=== PATIENT | male | born 1990 | race Caucasian/White ===

== ENCOUNTER 2017-12-06 15:10 | Emergency (ER) | payer BC ==
--- NOTE | 2017-12-06 15:33 | PDOC ---
History of Present Illness - General Chief Complaint: Vomiting/Diarrhea Stated Complaint: N/V/D Time Seen by Provider: 12/06/17 15:12 History Source: Patient Exam Limitations: No Limitations - History of Present Illness Initial Comments: 27 yo M presents with 2 days of nausea, vomiting, and diarrhea. He states that his symptoms started two days ago with many episodes of vomiting and diarrhea, unable to keep anything down. He presented to an urgent care, which gave him zofran, with some improvement. However, despite this, today he was still having vomiting this morning, unable to eat or drink anything. The diarrhea has started to resolve, and the vomiting was not as bad as yesterday, but he is having stomach cramping that is causing discomfort. He took motrin prior to arrival with some relief. +Chills and sweating. No measured temp. Past History - Past Medical History Allergies/Adverse Reactions: Allergies Allergy/AdvReac Type Severity Reaction Status Date / Time No Known Allergies Allergy Verified 12/06/17 15:22 Home Medications: Ambulatory Orders Ibuprofen 800 mg PO ONCE 12/06/17 - Suicide/Smoking/Psychosocial Hx Smoking Status: No Smoking History: Never smoked Have you smoked in the past 12 months: No Number of Cigarettes Smoked Daily: 0 'Breaking Loose' booklet given: 07/11/14 Hx Alcohol Use: Yes (EVERY OTHER DAY) Drug/Substance Use Hx: No Substance Use Type: None Review of Systems - Review of Systems Able to Perform ROS?: Yes Comments:: GENERAL/CONSTITUTIONAL: No fever or chills. No weakness. HEAD, EYES, EARS, NOSE AND THROAT: No change in vision. No ear pain or discharge. No sore throat. CARDIOVASCULAR: No chest pain or shortness of breath. RESPIRATORY: No cough, wheezing, or hemoptysis. GASTROINTESTINAL: +Nausea, vomiting, and diarrhea. No constipation. GENITOURINARY: No dysuria, frequency, or change in urination. MUSCULOSKELETAL: No joint or muscle swelling or pain. No neck or back pain. SKIN: No rash NEUROLOGIC: No headache, vertigo, loss of consciousness, or change in strength/ sensation. ENDOCRINE: No increased thirst. No abnormal weight change. HEMATOLOGIC/LYMPHATIC: No anemia, easy bleeding, or history of blood clots. ALLERGIC/IMMUNOLOGIC: No hives or skin allergy. *Physical Exam - Vital Signs Last Vital Signs Temp Pulse Resp BP Pulse Ox 99.2 F 70 15 112/68 97 12/06/17 15:11 12/06/17 15:11 12/06/17 15:11 12/06/17 15:11 12/06/17 15:11 - Physical Exam Comments: GENERAL: Awake, alert, and fully oriented, in no acute distress. Appears nontoxic. HEAD: No signs of trauma EYES: PERRLA, EOMI, sclera anicteric, conjunctiva clear ENT: Auricles normal inspection, hearing grossly normal, nares patent, oropharynx clear without exudates. Dry mucosa NECK: Normal ROM, supple, no lymphadenopathy, JVD, or masses LUNGS: Breath sounds equal, clear to auscultation bilaterally. No wheezes, and no crackles HEART: Regular rate and rhythm, normal S1 and S2, no murmurs, rubs or gallops ABDOMEN: Soft, nontender, normoactive bowel sounds. No guarding, no rebound. No masses EXTREMITIES: Normal range of motion, no edema. No clubbing or cyanosis. No cords, erythema, or tenderness NEUROLOGICAL: Cranial nerves II through XII grossly intact. Normal speech, normal gait SKIN: Warm, Dry, normal turgor, no rashes or lesions noted. ED Treatment Course - LABORATORY CBC & Chemistry Diagram: 12/06/17 15:50 12/06/17 15:50 Medical Decision Making - Medical Decision Making 12/06/17 16:37 Labs reviewed, no significant abnormalities. Exam shows no signs of acute abdomen. Patient reports improvement, feeling much better. Stable for DC home. *DC/Admit/Observation/Transfer Diagnosis at time of Disposition: Vomiting and diarrhea - Discharge Dispostion Disposition: HOME Condition at time of disposition: Improved Decision to Admit order: No - Referrals Referrals: Oscar Soler [Primary Care Provider] - - Patient Instructions Printed Discharge Instructions: DI for Diarrhea and Traveler's Diarrhea -- Adult, DI for Vomiting -- Adult - Post Discharge Activity
[2017-12-06] MEDS ORDERED: FAMOTIDINE 20 MG/50 ML IVPB 20 MG/50 ML MG IVPB ONE ×2 (15:34→15:56)
[2017-12-06] MEDS ORDERED: SODIUM CHLORIDE 1,000 ML IV STA (15:34)
[2017-12-06] MEDS ORDERED: ONDANSETRON 4 MG/2 ML VIAL IVPUSH ONE (15:34)
[2017-12-06] MEDS ORDERED: ONDANSETRON 4 MG/2 ML VIAL ONE (15:35)
[2017-12-06 15:53] VITALS: BP 112/68; PULSE 70; TEMP 99.2; BMI 26.1
[2017-12-06 16:09] LABS: URINE APPEARANCE Clear; URINE BILIRUBIN Negative (NEGATIVE); URINE COLOR Yellow; URINE GLUCOSE (UA) Negative (NEGATIVE); URINE KETONE Negative (NEGATIVE); URINE LEUK ESTERASE Negative (NEGATIVE); URINE NITRITE Negative (NEGATIVE); URINE PROTEIN Negative (NEGATIVE); URINE UROBILINOGEN 0.2 (0.2-1.0)
[2017-12-06 16:11] LABS: BASO % 0.6 % (0-2.0); EOS % 1.5 % (0-4.5); HEMATOCRIT 48.3 % (35.4-49); HEMOGLOBIN 16.6 GM/dl (11.7-16.9); MCH 28.6 pg (25.7-33.7); MCHC 34.3 g/dl (32.0-35.9); MEAN CELL VOLUME 83.3 fl (80-96); MEAN PLT VOLUME 8.6 fl (7.5-11.1); MONO % 14.7 % (3.8-10.2); NEUT % 71.2 % (42.8-82.8); PLATELET COUNT 157 K/MM3 (134-434); RDW 12.2 % (11.9-15.9); WHITE BLOOD COUNT 5.3 K/mm3 (4.0-10.8)
[2017-12-06 16:26] LABS: ALBUMIN 3.8 g/dl (3.5-5.0); ALK PHOS 42 U/L (32-92); ANION GAP 6 (8-16); BILIRUBIN,TOTAL 0.9 mg/dl (0.2-1.0); BLOOD UREA NITROGEN 7 mg/dl (7-18); CALCIUM 8.6 mg/dl (8.4-10.2); CHLORIDE 99 mmol/L (98-107); CO2 28 mmol/L (22-28); CREATININE 0.9 mg/dl (0.6-1.3); EPI CELLS 0-1 /HPF; GLUCOSE,RANDOM 100 mg/dl (74-106); POTASSIUM 3.5 mmol/L (3.5-5.1); SGOT/AST 22 U/L (10-42); SGPT/ALT 25 U/L (10-40); SODIUM 133 mmol/L (136-145); TOT PROT 6.7 g/dl (6.4-8.3); URINE WBC 0-3 (0-2)
[2017-12-06 17:11] LABS: LIPASE 154 U/L (73-393)
== END 2017-12-06 16:46 | disposition home or self-care (01) ==
LOC: FER 15:10
PROC: 3E033GC Introduction of Other Therapeutic Substance into Peripheral Vein, Percutaneous Approach (ICD-10-PCS; principal; 2017-12-06)
PROC: 3E0337Z Introduction of Electrolytic and Water Balance Substance into Peripheral Vein, Percutaneous Approach (ICD-10-PCS; 2017-12-06)
DX: R19.7 Diarrhea, unspecified (principal)
CPT/HCPCS: 36415; 80053; 81003; 81015; 83690; 85025; 99282-25; J7030

== ENCOUNTER 2019-04-03 11:01 | Emergency (ER) | payer BC ==
[2019-04-03 11:15] VITALS: BP 111/64; PULSE 84; TEMP 98; BMI 29.2
[2019-04-03] MEDS ORDERED: ONDANSETRON 4 MG/2 ML VIAL IVPUSH ONE (11:39)
[2019-04-03] MEDS ORDERED: SODIUM CHLORIDE 1,000 ML IV STA (11:39)
[2019-04-03] MEDS ORDERED: ONDANSETRON 4 MG/2 ML VIAL ONE (11:44)
--- NOTE | 2019-04-03 11:52 | PDOC ---
History of Present Illness - General Chief Complaint: Nausea/Vomiting Stated Complaint: VOMITING Time Seen by Provider: 04/03/19 11:35 History Source: Patient - History of Present Illness Timing/Duration: reports: other (last night) Past History - Past Medical History Allergies/Adverse Reactions: Allergies Allergy/AdvReac Type Severity Reaction Status Date / Time No Known Allergies Allergy Verified 04/03/19 11:15 Home Medications: Ambulatory Orders Ibuprofen 800 mg PO ONCE 12/06/17 Ondansetron HCl [Zofran] 4 mg PO Q8H #12 tablet 04/03/19 COPD: No - Psycho Social/Smoking Cessation Hx Smoking Status: No Smoking History: Never smoked Have you smoked in the past 12 months: No Number of Cigarettes Smoked Daily: 0 'Breaking Loose' booklet given: 07/11/14 Hx Alcohol Use: Yes Drug/Substance Use Hx: No Substance Use Type: None Review of Systems - Review of Systems Constitutional: No: Chills, Fever ABD/GI: Yes: Nausea, Vomiting. No: Diarrhea, Abdominal cramping : No: Dysuria *Physical Exam - Vital Signs Last Vital Signs Temp Pulse Resp BP Pulse Ox 98 F 84 18 111/64 99 04/03/19 11:13 04/03/19 11:13 04/03/19 11:13 04/03/19 11:13 04/03/19 11:13 - Physical Exam General Appearance: Yes: Appropriately Dressed. No: Apparent Distress HEENT: positive: Normal Voice Neck: positive: Supple Respiratory/Chest: negative: Respiratory Distress Gastrointestinal/Abdominal: positive: Normal Bowel Sounds, Soft. negative: Tender, Distended, Guarding, Rebound Integumentary: positive: Dry, Warm Neurologic: positive: Fully Oriented, Alert, Normal Mood/Affect ED Treatment Course - LABORATORY CBC & Chemistry Diagram: 04/03/19 11:45 04/03/19 11:45 Medical Decision Making - Medical Decision Making 04/03/19 11:41 29-year-old male, denies any past medical history, here with isolated n/v. States since last night, he has vomited "25 times". Feels slightly dizzy. No abd pain, diarrhea, f/c. Has had similar episodes in past and seen in ED w/ dx of dehydration and usually improves w/ IVF per pt. No h/o gastritis/GERD and no frequent NSAID use. Pt states he drank vodka last night which he does frequently and did not drink more than usual but does report that sxs started at some point after ingestion. States he recently decided to "cut down" on drinking to stay healthy. Denies marijuana or other illicit drug use. 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 Had conversation with patient explaining that symptoms might be due to alcohol ingestion and that he might need to decrease consumption going forward. Patient reports feeling better at this time and able to tolerate p.o. here. Will discharge with supportive treatment Discharge - Discharge Information Problems reviewed: Yes Clinical Impression/Diagnosis: Nausea and vomiting Qualifiers: Vomiting type: unspecified Vomiting Intractability: non-intractable Qualified Code(s): R11.2 - Nausea with vomiting, unspecified Condition: Improved Disposition: HOME - Follow up/Referral Referrals: Oscar Soler [Primary Care Provider] - - Patient Discharge Instructions Patient Printed Discharge Instructions: DI for Vomiting -- Adult Additional Instructions: Please continue to hydrate yourself and take zofran as needed Return to ER as needed - Post Discharge Activity
[2019-04-03 12:06] LABS: BASO % 0.4 % (0-2.0); EOS % 0.1 % (0-4.5); HEMATOCRIT 46.3 % (35.4-49); HEMOGLOBIN 15.7 GM/dL (11.7-16.9); LYMPH % 8.9 % (8-40); MCH 28.8 pg (25.7-33.7); MCHC 33.8 g/dl (32.0-35.9); MEAN PLT VOLUME 8.8 fl (7.5-11.1); MONO % 3.5 % (3.8-10.2); NEUT % 87.1 % (42.8-82.8); PLATELET COUNT 227 K/MM3 (134-434); RBC 5.45 M/mm3 (4.00-5.60); RDW 13.4 % (11.9-15.9); WHITE BLOOD COUNT 7.5 K/mm3 (4.0-10.0)
[2019-04-03 12:34] LABS: COCAINE, UR NEGATIVE ng/ml (CUTOFF=300); METHADONE, UR NEGATIVE ng/ml (CUTOFF=300); OPIATES, URI NEGATIVE ng/ml (CUTOFF=300); PHENCYCLIDINE,URINE NEGATIVE ng/ml (CUTOFF=25); URINE AMPHETAMINES NEGATIVE ng/ml (CUTOFF=500); URINE BARBITURATES NEGATIVE ng/ml (CUTOFF=200); URINE BENZODIAZEPINES NEGATIVE ng/ml (CUTOFF=200)
[2019-04-03 12:37] LABS: ALBUMIN 4.5 g/dl (3.4-5.0); BILIRUBIN,TOTAL 0.6 mg/dL (0.2-1); BLOOD UREA NITROGEN 17.6 mg/dL (7-18); CALCIUM 9.5 mg/dL (8.5-10.1); POTASSIUM 4.8 mmol/L (3.5-5.1); TOT PROT 7.5 g/dl (6.4-8.2)
== END 2019-04-03 12:57 | disposition home or self-care (01) ==
LOC: JER 11:01
PROC: 3E033GC Introduction of Other Therapeutic Substance into Peripheral Vein, Percutaneous Approach (ICD-10-PCS; principal; 2019-04-03)
DX: R11.2 Nausea with vomiting, unspecified (principal)
CPT/HCPCS: 36415; 80053; 80307; 83690; 85025; 99282-25; J7030